=== PATIENT | male | born 1975 | race Caucasian/White ===

== ENCOUNTER 2017-07-28 22:46 | Emergency (ER) | payer OTHER, BC ==
[2017-07-28 23:15] LABS: BILIRUBIN,URINE NEGATIVE (NEGATIVE)
[2017-07-28 23:23] LABS: UA w/ MICROSCOPIC CHARGE YES
[2017-07-28 23:24] LABS: UR CULTURE IF IND NOT INDICATED; WBC,URINE 0-3 /HPF (0-3)
[2017-07-28] MEDS ORDERED: SODIUM CHLORIDE 0.9% 1,000 ML IV ONE (23:37)
[2017-07-28] MEDS ORDERED: KETOROLAC 60 MG/2 ML VIAL IVP STA (23:37)
[2017-07-28] MEDS ORDERED: ONDANSETRON 4 MG/2 ML VIAL IVP STA (23:38)
[2017-07-28 23:49] LABS: BASOPHILS # (AUTO) 0.1 10^3/uL (0.0-0.1); BASOPHILS % (AUTO) 0.6 %; HCT - HEMATOCRIT 41.2 % (42.0-52.0); HGB - HEMOGLOBIN 13.8 g/dL (14.0-18.0); LYMPHOCYTES # (AUTO) 1.1 10^3/uL (1.5-3.5); LYMPHOCYTES % (AUTO) 7.8 %; MEAN CORPUSCULAR HEMOGLOBIN 29.7 pg (27.0-31.0); MEAN CORPUSCULAR HGB CONC 33.6 g/dL (32.0-36.0); MEAN CORPUSCULAR VOLUME 88.5 fL (80.0-94.0); MEAN PLATELET VOLUME 7.3 fL (7.4-11.4); MONOCYTES # (AUTO) 0.5 10^3/uL (0.0-1.0); MONOCYTES % (AUTO) 3.3 %; NEUTROPHILS # (AUTO) 12.9 10^3/uL (1.5-6.6); NEUTROPHILS % (AUTO) 88.3 %; NUCLEATED RED BLOOD CELLS AUTO 0.1 /100WBC; RED BLOOD COUNT 4.66 10^6/uL (4.70-6.10); RED CELL DISTRIBUTION WIDTH 13.4 % (12.0-15.0); UNCORRECTED WHITE BLOOD COUNT 14.6 x10^3/uL; WHITE BLOOD COUNT 14.6 x10^3/uL (4.8-10.8)
[2017-07-28] MEDS ORDERED: ONDANSETRON 4 MG/2 ML VIAL ONE (23:57)
[2017-07-28] MEDS ORDERED: KETOROLAC 30 MG/ML VIAL ONE (23:57)
[2017-07-29] LABS: ALBUMIN/GLOBULIN RATIO 1.2 (1.0-2.2); BILIRUBIN,TOTAL 0.4 mg/dL (0.2-1.0); CALCIUM 9.2 mg/dL (8.5-10.3); CREATININE 1.1 mg/dL (0.6-1.2); POTASSIUM 3.9 mmol/L (3.5-5.0); TOTAL PROTEIN 7.7 g/dL (6.7-8.2)
--- NOTE | 2017-07-29 00:16 | CT Preliminary Report ---
Exam: CT ABDOMEN/PELVIS W/O IMPRESSION: 1. Mildly obstructing 5 x 5 x 5 mm left UPJ stone. 2. Mid sigmoid colon epiploic appendagitis of uncertain chronicity. 3. Colonic diverticulosis. [facility] SITE ID: [id number]
--- NOTE | 2017-07-29 00:22 | CT Report ---
EXAM: CT ABDOMEN AND PELVIS (CT KUB) EXAM DATE: 07/29/2017 12:00 AM. CLINICAL HISTORY: Left flank pain, hematuria. COMPARISONS: None. TECHNIQUE: Routine axial helical CT imaging was performed through the abdomen and pelvis without IV c ontrast. Reconstructions: Coronal and sagittal. In accordance with CT protocol optimization, one or more of the following dose reduction techniques w ere utilized for this exam: automated exposure control, adjustment of mA and/or KV based on patient s ize, or use of iterative reconstructive technique. FINDINGS: Lung Bases: Unremarkable. Right Kidney/Ureter: No stones, hydronephrosis, or hydroureter. Left Kidney/Ureter: Mildly obstructing 5 x 5 x 5 mm left UPJ stone. Otherwise grossly unremarkable. Other Abdominal Organs: Noncontrast images of the abdominal organs are grossly unremarkable. Peritoneal Cavity: No free fluid, free air or jv adenopathy. No excessive stool burden. Bowel is g rossly unremarkable with exception of colonic diverticulosis and mid sigmoid colon epiploic appendagi tis of uncertain chronicity. Pelvic Organs: No bladder stones or gross wall thickening. Noncontrast images of the visualized pelvi c organs are unremarkable. Vasculature: Unremarkable. Other: None. IMPRESSION: 1. Mildly obstructing 5 x 5 x 5 mm left UPJ stone. 2. Mid sigmoid colon epiploic appendagitis of uncertain chronicity. 3. Colonic diverticulosis. [facility] Referring Provider Line: [phone] SITE ID: [id number]
--- NOTE | 2017-07-29 00:25 | ED Physician Documentation ---
PD HPI BACK PAIN - Stated complaint Stated Complaint: BACK PX - Chief complaint Chief Complaint: Abd Pain - History obtained from History obtained from: Patient - History of Present Illness Timing - duration: Days (2 or 3) Timing - details: Still present Location: Mid, Left Quality: Pain Associated symptoms: No: Fever Similar symptoms before: Diagnosis (History of similar symptoms in the past with kidney stones.) - Additional information Additional information: The patient is a 41-year-old male who presents with left flank pain radiating to his left groin. His symptoms started 2 or 3 days ago and had been waxing and waning since that time, becoming worse over the past 6 hours. He reports vomiting 1. He denies dysuria. He reports low-grade fever, and has a history of recurrent bouts of diarrhea. He has had no abdominal surgery. He denies history of similar symptoms in the past. Review of Systems Constitutional: reports: Fever Nose: denies: Congestion Throat: denies: Sore throat Cardiac: denies: Chest pain / pressure Respiratory: denies: Dyspnea, Cough GI: reports: Abdominal Pain, Vomiting (times one), Diarrhea (History of chronic , recurrent bouts.) : denies: Dysuria, Hematuria Skin: denies: Rash Musculoskeletal: reports: Back pain (left flank). denies: Extremity pain Neurologic: denies: Focal weakness, Numbness, Headache PD PAST MEDICAL HISTORY - Past Medical History Past Medical History: No Cardiovascular: None Respiratory: None Endocrine/Autoimmune: None : Kidney stones - Past Surgical History Past Surgical History: No - Present Medications Home Medications: Ambulatory Orders Medication Instructions Recorded Confirmed Tamsulosin [Flomax] 0.4 mg PO DAILY #5 capsule 07/29/17 oxyCODONE/ACET 5/325 [Percocet 5 1 - 2 tab PO Q4-6H PRN #15 tablet 07/29/17 mg/325 mg] - Allergies Allergies/Adverse Reactions: Allergies Allergy/AdvReac Type Severity Reaction Status Date / Time No Known Drug Allergies Allergy Verified 07/28/17 22:52 - Social History Does the pt smoke?: No Smoking Status: Never smoker Does the pt drink ETOH?: No Does the pt have substance abuse?: No - Immunizations Immunizations are current?: Yes PD ED PE NORMAL - Vitals Vital signs reviewed: Yes (Hypertensive and mildly tachycardic.) - General General: Alert and oriented X 3, Well developed/nourished - HEENT HEENT: Atraumatic, EOMI, Moist mucous membranes, Pharynx benign - Neck Neck: No adenopathy, No JVD - Cardiac Cardiac: No murmur - Respiratory Respiratory: No respiratory distress, Clear bilaterally - Abdomen Abdomen: Soft, Non tender - Back Back: Other (Left flank tenderness to percussion.) - Derm Derm: No rash - Extremities Extremities: No edema, No calf tenderness / cord - Neuro Neuro: Alert and oriented X 3, No motor deficit, Normal speech Results - Vitals Vitals: Vital Signs - 24 hr 07/29/17 00:55 Heart Rate 99 Respiratory 18 Rate Blood Pressure 149/88 H O2 Saturation 100 Oxygen O2 Source Room air - Labs Labs: Laboratory Tests 07/28/17 07/28/17 07/28/17 23:00 23:43 23:43 WBC 14.6 H RBC 4.66 L Hgb 13.8 L Hct 41.2 L MCV 88.5 MCH 29.7 MCHC 33.6 RDW 13.4 Plt Count 289 MPV 7.3 L Neut # 12.9 H Lymph # 1.1 L [place] # 0.5 Eos # 0.0 Baso # 0.1 Absolute Nucleated RBC 0.01 Nucleated RBC % 0.1 Sodium 134 L Potassium 3.9 Chloride 102 Carbon Dioxide 24 Anion Gap 8.0 BUN 16 Creatinine 1.1 Estimated GFR (MDRD) 73 L Glucose 143 H Calcium 9.2 Total Bilirubin 0.4 AST 26 ALT 51 Alkaline Phosphatase 64 Total Protein 7.7 Albumin 4.2 Globulin 3.5 Albumin/Globulin Ratio 1.2 Lipase 16 L Urine Color YELLOW Urine Clarity CLOUDY Urine pH 6.0 Ur Specific [place] >=1.030 H Urine Protein 30 H Urine Glucose (UA) NEGATIVE Urine Ketones TRACE Urine Occult Blood LARGE H Urine Nitrite NEGATIVE Urine Bilirubin NEGATIVE Urine Urobilinogen 0.2 (NORMAL) Ur Leukocyte Esterase NEGATIVE Urine RBC TNTC H Urine WBC 0-3 Ur Squamous Epith Cells NONE SEEN Urine Bacteria None Seen Urine Mucus Moderate Strands Ur Microscopic Review INDICATED Urine Culture Comments NOT INDICATED - Rads (name of study) CT abd/pelvis w/o Radiology: Prelim report reviewed, EMP read contemporaneously, See rad report ( 1. Mildly obstructing 5 x 5 x 5 mm left UPJ stone. 2. Mid sigmoid colon epiploic appendagitis of uncertain chronicity. 3. Colonic diverticulosis.) PD MEDICAL DECISION MAKING - ED course Complexity details: reviewed results, re-evaluated patient, considered differential, d/w patient, d/w family ED course: The patient's presentation is most consistent with left renal colic, with a 5 mm mildly obstructing left distal ureteral stone seen on CT scan. Urinalysis revealed microscopic hematuria, without pyuria or bacteriuria. Treatment in the emergency department included administration of normal saline 1 L IV, ketorolac 30 mg IV, and ondansetron 4 mg IV. The patient's symptoms resolved with the above treatment. I discussed with him and his female event coordinator the diagnosis, expected course of illness, symptomatic treatment and outpatient follow-up, as well as potentially worrisome signs or symptoms that should prompt reevaluation in the emergency department. He is being discharged with prescriptions for Flomax and for Percocet, 15 tablets. It should be noted that the patient's CT scan also revealed mid sigmoid colon epiploic appendicitis of uncertain chronicity. This may be the underlying cause for the patient's history of recurrent bouts of diarrhea. Departure - Departure Disposition: 01 Home, Self Care Clinical Impression: Renal colic, Ureteral stone Condition: Stable Instructions: ED Stone Renal W Colic Prescriptions: oxyCODONE/ACET 5/325 [Percocet 5 mg/325 mg] 1 - 2 tab PO Q4-6H PRN #15 tablet PRN Reason: Pain Tamsulosin [Flomax] 0.4 mg PO DAILY #5 capsule Comments: Drink plenty of fluids. Take ibuprofen, up to 800 mg 3 times daily for its anti-inflammatory effect. You can use Percocet as prescribed if needed for pain. Take Flomax daily as prescribed. Follow up with your primary physician within 1 week. Call to schedule appointment. Return to the emergency department if you develop increasing pain, persistent vomiting, fever, or otherwise worsening symptoms. Discharge Date/Time: 07/29/17 00:57
[2017-07-29 00:56] VITALS: BP 149/88
== END 2017-07-29 00:57 | disposition home or self-care (01) ==
LOC: ED 22:46
DX: N20.1 Calculus of ureter (principal)
CPT/HCPCS: 36415; 74176; 80053; 81001; 81003; 83690; 85025; 87086; 96374; 96375; 99283